=== PATIENT | female | born 1935 | race Caucasian/White ===

== ENCOUNTER 2020-05-08 16:29 | Emergency (ER) | payer OTHER ==
[~2020-05-08] VITALS: Ht 162.6 cm; Wt 52.2 kg
[2020-05-08] MEDS ORDERED: ZOLOFT25 MG PO (16:39)
[2020-05-08] MEDS ORDERED: TRAZODONE HCL50 MG PO (16:40)
[2020-05-08] MEDS ORDERED: HYDROXYZINE HCL25 M2 PO (16:40)
[2020-05-08] MEDS ORDERED: OXYBUTYNIN 5 MG5 M2 PO (16:40)
[2020-05-08] MEDS ORDERED: NORCO 5-325 TA1 EAC2 PO (19:55)
[2020-05-08] MEDS ORDERED: NABUMETONE 750750 M1 PO (19:55)
[2020-05-08 20:25] VITALS: BP 156/71
== END 2020-05-08 20:26 | disposition home or self-care (01) ==
LOC: M.ERS 16:29
DX: M25.561 Pain in right knee (principal); Z79.899 Other long term (current) drug therapy